=== PATIENT | female | born 1940 | race Two or more races ===

== ENCOUNTER 2017-12-11 15:05 | Outpatient (CLI) | payer OTHER | END 2017-12-11 16:20 | disposition home or self-care (01) | LOC: RAD 501 15:05 | DX: Z96.653 Presence of artificial knee joint, bilateral (principal) ==

== ENCOUNTER 2017-12-16 09:51 | Outpatient (CLI) | payer OTHER | END 2017-12-16 09:56 | disposition home or self-care (01) | LOC: LAB 09:51 | DX: D64.89 Other specified anemias (principal); M06.4 Inflammatory polyarthropathy ==

== ENCOUNTER → 2017-12-19 | Outpatient (CLI) | payer OTHER | END | disposition home or self-care (01) | LOC: NUCLEAR 08:00 | DX: I87.2 Venous insufficiency (chronic) (peripheral) (principal) ==

== ENCOUNTER 2018-03-03 10:15 | Outpatient (CLI) | payer OTHER | END 2018-03-03 10:30 | disposition home or self-care (01) | LOC: NUCLEAR 10:15 | DX: M81.0 Age-related osteoporosis without current pathological fracture (principal) ==

== ENCOUNTER → 2018-03-11 | Outpatient (CLI) | payer OTHER | END | disposition home or self-care (01) | LOC: RAD 501 15:09 | DX: M25.551 Pain in right hip (principal); M54.5 Low back pain ==